=== PATIENT | female | born 1995 | race Caucasian/White ===

== ENCOUNTER 2018-12-10 17:58 | Emergency (ER) | payer MEDICAID ==
--- NOTE | 2018-12-10 19:07 | EDM.PDOC ---
ED HPI GENERAL MEDICAL PROBLEM - General Chief Complaint: ENT Problem Stated Complaint: PT HAS EAR INFECTION Time Seen by Provider: 12/10/18 18:51 Source of Information: Reports: Patient History Limitations: Reports: No Limitations - History of Present Illness INITIAL COMMENTS - FREE TEXT/NARRATIVE: HISTORY AND PHYSICAL: History of present illness: Patient is a 23-year-old female presents to the ED today with concern of left ear pain 2-3 days. Patient states she has had cold-like symptoms over the past week but her cold symptoms have resolved but she started getting left ear pain a few days ago. Patient states she's been taking Tylenol and ibuprofen with some relief of symptoms. Eyes any other symptoms or concerns at this time. Patient denies fever, chills, chest pain, shortness of breath, or cough. Denies headache, neck stiff ness, change in vision, syncope, or near syncope. Denies nausea, vomiting, abdominal pain, diarrhea, constipation, or dysuria. Has not noted any blood in urine or stool. Patient has been eating and drinking appropriately. Review of systems: As per history of present illness and below otherwise all systems reviewed and negative. Past medical history: As per history of present illness and as reviewed below otherwise noncontributory. Surgical history: As per history of present illness and as reviewed below otherwise noncontributory. Social history: See social history for further information Family history: As per history of present illness and as reviewed below otherwise noncontributory. Physical exam: General: Patient is alert, oriented, and in no acute distress. Patient sitting comfortably on exam table. HEENT: Atraumatic, normocephalic, pupils equal and reactive bilaterally, negative for conjunctival pallor or scleral icterus, mucous membranes moist, right TM is normal, left TM is erythematous and bulging, the left external auditory canal is also an erythematous and slightly edematous with small amount of granulation tissue debris in the canal, patient does have pain with movement of the left auricle and pain with palpation of the left tragus, no mastoid tenderness on the left, throat clear, neck supple, nontender, trachea midline. No drooling or trismus noted. No meningeal signs. No hot potato voice noted. Lungs: Clear to auscultation, breath sounds equal bilaterally, chest nontender. Heart: S1S2, regular rate and rhythm without overt murmur Abdomen: Soft, nondistended, nontender. Negative for masses or hepatosplenomegaly. Negative for costovertebral tenderness. Pelvis: Stable nontender. Genitourinary: Deferred. Rectal: Deferred. Skin: Intact, warm, dry. No lesions or rashes noted. Extremities: Atraumatic, negative for cords or calf pain. Neurovascular unremarkable. Neuro: Awake, alert, oriented. Cranial nerves II through XII unremarkable. Cerebellum unremarkable. Motor and sensory unremarkable throughout. Exam nonfocal. Notes: Discussed the importance for follow-up with a primary care provider. Voices understanding and is agreeable to plan of care. Denies any further questions or concerns at this time. Diagnostics: None Therapeutics: None Prescription: Amoxicillin, Cortisporin Otic Impression: Left acute otitis media Left acute otitis externa Plan: 1. Take medication as prescribed. Continue to alternate ibuprofen and Tylenol as directed for pain and discomfort. 2. Follow-up with your primary care provider or ENT specialist as discussed. Return to the ED as needed and as discussed. Definitive disposition and diagnosis as appropriate pending reevaluation and review of above. L ear Pain Score (Numeric/FACES): 10 - Related Data Allergies Allergy/AdvReac Type Severity Reaction Status Date / Time No Known Allergies Allergy Verified 12/10/18 18:57 Home Meds: Home Meds . [No Known Home Meds] 12/10/18 [History] Past Medical History - Past Health History Medical/Surgical History: Denies Medical/Surgical History Social & Family History - Tobacco Use Smoking Status *Q: Never Smoker - Caffeine Use Caffeine Use: Reports: Soda - Recreational Drug Use Recreational Drug Use: No ED ROS GENERAL - Review of Systems Review Of Systems: ROS reveals no pertinent complaints other than HPI. ED EXAM, GENERAL - Physical Exam Exam: See Below (See dictation) Course - Vital Signs Last Recorded V/S: Last Vital Signs Temp 97.4 F 12/10/18 18:55 Pulse 78 12/10/18 18:55 Resp 16 12/10/18 18:55 BP 138/75 12/10/18 18:55 Pulse Ox 99 12/10/18 18:55 Departure - Departure Time of Disposition: 19:06 Disposition: Home, Self-Care 01 Clinical Impression: Left otitis media Qualifiers: Otitis media type: suppurative Chronicity: acute Recurrence: not specified as recurrent Spontaneous tympanic membrane rupture: without spontaneous rupture Qualified Code(s): H66.002 - Acute suppurative otitis media without spontaneous rupture of ear drum, left ear Left otitis externa Qualifiers: Otitis externa type: unspecified type Chronicity: acute Qualified Code(s): H60.502 - Unspecified acute noninfective otitis externa, left ear - Discharge Information Instructions: Otitis Media, Adult, [id number], Otitis Externa, [id number] Referrals: PCP,None [Primary Care Provider] - Additional Instructions: The following information is given to patients seen in the emergency department who are being discharged to home. This information is to outline your options for follow-up care. We provide all patients seen in our emergency department with a follow-up referral. The need for follow-up, as well as the timing and circumstances, are variable depending upon the specifics of your emergency department visit. If you don't have a primary care physician on staff, we will provide you with a referral. We always advise you to contact your personal physician following an emergency department visit to inform them of the circumstance of the visit and for follow-up with them and/or the need for any referrals to a consulting specialist. The emergency department will also refer you to a specialist when appropriate. This referral assures that you have the opportunity for follow-up care with a specialist. All of these measure are taken in an effort to provide you with optimal care, which includes your follow-up. Under all circumstances we always encourage you to contact your private physician who remains a resource for coordinating your care. When calling for follow-up care, please make the office aware that this follow-up is from your recent emergency room visit. If for any reason you are refused follow-up, please contact the [facility] Emergency Department at and asked to speak to the emergency department charge nurse. [facility] [address] [place] [id number] [facility] [address] [place] [address] [facility] Ears, Nose, and Throat Specialist, Dr. Gagandeep Deleon [address] , [facility] [address] 1. Take medication as prescribed. Continue to alternate ibuprofen and Tylenol as directed for pain and discomfort. 2. Follow-up with your primary care provider or ENT specialist as discussed. Return to the ED as needed and as discussed.
== END 2018-12-10 19:24 | disposition home or self-care (01) ==
LOC: MW.ED 17:58
DX: H66.002 Acute suppurative otitis media without spontaneous rupture of ear drum, left ear (principal); H60.502 Unspecified acute noninfective otitis externa, left ear
CPT/HCPCS: 99282

== ENCOUNTER 2019-01-08 00:52 | Inpatient (IN) | payer MEDICAID ==
[2019-01-08] MEDS ORDERED: Terbutaline 1 MG/ML SDV SUBCUT PRN (00:55)
[2019-01-08] MEDS ORDERED: Misoprostol 200 MCG Tab PO PRN (00:55)
[2019-01-08] MEDS ORDERED: Water For Irrigation,Sterile 1,000 ML Container IRR PRN (00:55)
[2019-01-08] MEDS ORDERED: Lidocaine 1% 50 ML MDV INJECT PRN (00:55)
[2019-01-08] MEDS ORDERED: Misoprostol 25 MCG (1/4 of 100 MCG) Tab VAG PRN (00:55)
[2019-01-08] MEDS ORDERED: Sodium Chloride 0.9% 2.5 ML Syringe FLUSH PRN (00:55)
[2019-01-08] MEDS ORDERED: Sodium Chloride 0.9% 10 ML Syringe FLUSH PRN (00:55)
[2019-01-08] MEDS ORDERED: Tranexamic Acid 1,000 MG in Sodium Chloride 0.9% 100 ML IV PRN (00:55)
[2019-01-08] MEDS ORDERED: Sodium Chloride 0.9% 10 ML SDV IV PRN (00:55)
[2019-01-08] MEDS ORDERED: Ondansetron 4 MG/2 ML SDV IVPUSH PRN (00:55)
[2019-01-08] MEDS ORDERED: Carboprost Tromethamine 250 MCG/1 ML Amp IM PRN (00:55)
[2019-01-08] MEDS ORDERED: Nalbuphine 10 MG/1 ML Vial IVPUSH PRN (00:55)
[2019-01-08] MEDS ORDERED: Methylergonovine 0.2 MG/1 ML Amp IM PRN (00:55)
[2019-01-08] MEDS ORDERED: Oxytocin/0.9 % Sodium Chloride 30 UNIT/500 ML BAG IV SCH ×2 (01:00)
[2019-01-08] MEDS: Misoprostol 25 MCG (1/4 of 100 MCG) Tab VAG PRN ×3 (05:50→14:12)
[2019-01-08] MEDS: Butorphanol 1 MG/ML SDV IVPUSH PRN ×2 (15:25→20:27)
[2019-01-08] MEDS: Lactated Ringers 1,000 ML IV SCH ×3 (20:30→22:36)
[2019-01-08] MEDS ORDERED: fentaNYL 100 MCG/2 ML SDV ONE (21:02)
[2019-01-08] MEDS ORDERED: Ropivacaine HCl/PF 100 ML ONE (21:02)
--- NOTE | 2019-01-08 21:27 | PCM.PREANE ---
Preanesthetic Assessment - Anesthesia/Transfusion/Family Hx Anesthesia History: No Prior Anesthesia Family History of Anesthesia Reaction: No Transfusion History: No Prior Transfusion(s) - Review of Systems General: No Symptoms Pulmonary: No Symptoms Cardiovascular: No Symptoms Gastrointestinal: No Symptoms Neurological: No Symptoms - Physical Assessment NPO Status Date: 01/08/19 NPO Status Time: 14:00 Height: 1.6 m Weight: 97.523 kg ASA Class: 1 - Lab Values: Laboratory Last Values WBC 14.65 K/uL (4.0-11.0) H 01/08/19 01:31 RBC 4.39 M/uL (4.30-5.90) 01/08/19 01:31 Hgb 12.0 g/dL (12.0-16.0) 01/08/19 01:31 Hct 36.8 % (36.0-46.0) 01/08/19 01:31 MCV 83.8 fL (80.0-98.0) 01/08/19 01:31 MCH 27.3 pg (27.0-32.0) 01/08/19 01:31 MCHC 32.6 g/dL (31.0-37.0) 01/08/19 01:31 RDW Std Deviation 47.2 fl (28.0-62.0) 01/08/19 01:31 RDW Coeff of Adonis 16 % (11.0-15.0) H 01/08/19 01:31 Plt Count 186 K/uL (150-400) 01/08/19 01:31 MPV 12.10 fL (7.40-12.00) H 01/08/19 01:31 Nucleated RBC % 0.0 /100WBC 01/08/19 01:31 Nucleated RBCs # 0 K/uL 01/08/19 01:31 Blood Type A POSITIVE 01/08/19 01:31 Antibody Screen NEGATIVE 01/08/19 01:31 - Allergies Allergies/Adverse Reactions: Allergies Allergy/AdvReac Type Severity Reaction Status Date / Time No Known Allergies Allergy Verified 12/10/18 18:57 - Acknowledgements Anesthesia Type Planned: Epidural Pt an Appropriate Candidate for the Planned Anesthesia: Yes Alternatives and Risks of Anesthesia Discussed w Pt/Guardian: Yes Pt/Guardian Understands and Agrees with Anesthesia Plan: Yes PreAnesthesia Questionnaire - Past Health History Medical/Surgical History: Denies Medical/Surgical History Respiratory History: Reports: Asthma - Past Surgical History GI Surgical History: Reports: Appendectomy Other GI Surgeries/Procedures: 2006 - SUBSTANCE USE Smoking Status *Q: Never Smoker Tobacco Use Within Last Twelve Months: No Second Hand Smoke Exposure: No Recreational Drug Use History: No - HOME MEDS Home Medications: Home Meds . [No Known Home Meds] 12/10/18 [History] - CURRENT (IN HOUSE) MEDS Current Meds: Current Medications Butorphanol Tartrate (Stadol) 1 mg IVPUSH Q1H PRN PRN Reason: Pain Last Admin: 01/08/19 20:27 Dose: 1 mg Carboprost Tromethamine (Hemabate Ds) 250 mcg IM ASDIRECTED PRN PRN Reason: Post Hemorrhage Lactated Ringer's (Ringers, Lactated) 1,000 mls @ 150 mls/hr IV ASDIRECTED SANDI Last Admin: 01/08/19 21:25 Dose: 999 mls/hr Oxytocin/Sodium Chloride (Oxytocin 30 Unit/500 Ml-Ns) 30 unit in 500 mls @ 999 mls/hr IV TITRATE SANDI Oxytocin/Sodium Chloride (Oxytocin 30 Unit/500 Ml-Ns) 30 unit in 500 mls @ 2 mls/hr IV TITRATE SANDI; Protocol Last Titration: 01/08/19 20:00 Dose: 8 munits/min, 8 mls/hr Tranexamic Acid 1,000 mg/ (Sodium Chloride) 110 mls @ 660 mls/hr IV ONETIME PRN PRN Reason: Bleeding Lidocaine HCl (Xylocaine 1%) 50 ml INJECT ONETIME PRN PRN Reason: Laceration repair Methylergonovine Maleate (Methergine) 0.2 mg IM ASDIRECTED PRN PRN Reason: Post Hemorrhage Misoprostol (Cytotec) 200 mcg PO ONETIME PRN PRN Reason: Post Hemorrhage Misoprostol (Cytotec) 25 mcg VAG ONETIME PRN PRN Reason: Cervical Ripening Last Admin: 01/08/19 01:40 Dose: 25 mcg Misoprostol (Cytotec) 25 mcg VAG Q4H PRN PRN Reason: Cervical Ripening Last Admin: 01/08/19 14:12 Dose: 25 mcg Nalbuphine HCl (Nubain) 10 mg IVPUSH Q1H PRN PRN Reason: Pain (severe 7-10) Ondansetron HCl (Zofran) 4 mg IVPUSH Q6H PRN PRN Reason: Nausea/Vomiting Sodium Chloride (Saline Flush) 10 ml FLUSH ASDIRECTED PRN PRN Reason: Keep Vein Open Last Admin: 01/08/19 01:30 Dose: 10 ml Sodium Chloride (Saline Flush) 2.5 ml FLUSH ASDIRECTED PRN PRN Reason: Keep Vein Open Sodium Chloride (Normal Saline) 10 ml IV ASDIRECTED PRN PRN Reason: IV Use Sterile Water (Sterile Water For Irrigation) 1,000 ml IRR ASDIRECTED PRN PRN Reason: delivery Terbutaline Sulfate (Brethine) 0.25 mg SUBCUT ASDIRECTED PRN PRN Reason: Tacysystole Discontinued Medications Fentanyl (Sublimaze) Confirm Administered Dose 100 mcg .ROUTE .STK-MED ONE Stop: 01/08/19 21:03 Ropivacaine (Naropin 0.2%) Confirm Administered Dose 100 mls @ as directed .ROUTE .STK-MED ONE Stop: 01/08/19 21:03
--- NOTE | 2019-01-08 21:31 | PCM.PRNOTE ---
- Free Text/Narrative Note: Anes Note Patient requests epidural for L&D. Sitting position. Level L3-L4, midline approach. Chloraprep scrub to lumbar area. Sterile fenstrated drape applied. Epidural space easily achieved single attempt with ease using ISRAEL technique. ISRAEL at 5 cm. Epidural cath threaded 5 cm with ease. Epidural cath secured at skin at 10 cm using sterile clear adhesive dressing. 2119 Ruma 3 cc 1.5% lido with epi negative. 2122 Load 10 cc 0.2% ropiv with 1 mcg/cc fentanyl in sloww divided doses. 2136 Pump started same solution at 8 cc hr with 6 cc q 20 min prn bolus. Jesse well. Time with patient Hair Granados [employer]
[2019-01-09] MEDS: Lactated Ringers 1,000 ML IV SCH ×2 (00:51→09:25)
[2019-01-09] MEDS ORDERED: fentaNYL 100 MCG/2 ML SDV ONE (07:07)
[2019-01-09] MEDS ORDERED: Ropivacaine HCl/PF 100 ML ONE (07:07)
--- NOTE | 2019-01-09 07:17 | PCM.PRNOTE ---
- Free Text/Narrative Note: Anes Note Epidural infusion completed. A new 100 cc bag of 0.2% ropivicaine with 1 mcg/cc fentanyl was placed. An infusion of 8 cc hr with 6 cc q 20 min prn bolus was started. Patient reports excellent analgesia. Time with patient [id number]
[2019-01-09] MEDS ORDERED: ceFAZolin 2 GM in Premix Bag 1 BAG IV ONE (09:25)
[2019-01-09] MEDS ORDERED: Citric Acid/Sodium Citrate Solution 30 ML Cup PO ONE (09:26)
[2019-01-09] MEDS ORDERED: Bupivacaine 0.5% 30 ML SDV ONE (09:28)
[2019-01-09] MEDS ORDERED: Propofol 200 MG/20 ML SDV ONE (09:33)
[2019-01-09] MEDS ORDERED: ePHEDrine 50 MG/ML SDV ONE (09:34)
[2019-01-09] MEDS ORDERED: Phenylephrine/Normal Saline 100 MCG/ML 10 ML Syringe ONE (09:34)
[2019-01-09] MEDS ORDERED: Ondansetron 4 MG/2 ML SDV ONE (09:34)
[2019-01-09] MEDS ORDERED: Sodium Chloride 0.9% 40 ML ONE (09:34)
[2019-01-09] MEDS ORDERED: ceFAZolin 1 GM Vial ONE (09:34)
[2019-01-09] MEDS ORDERED: Morphine PF 10 MG/10 ML SDV ONE (09:57)
[2019-01-09] MEDS ORDERED: Acetaminophen/oxyCODONE 325-5 MG Tab PO PRN ×2 (11:15→11:19)
[2019-01-09] MEDS ORDERED: Ondansetron 4 MG/2 ML SDV IVPUSH PRN ×2 (11:15→11:19)
[2019-01-09] MEDS ORDERED: Lanolin 100% Cream 7 GM Tube TOP PRN (11:15)
[2019-01-09] MEDS ORDERED: diphenhydrAMINE 50 MG/ML SDV IVPUSH PRN ×2 (11:15→11:19)
[2019-01-09] MEDS ORDERED: Lactated Ringers 1,000 ML IV SCH (11:15)
[2019-01-09] MEDS ORDERED: Bisacodyl 10 MG Supp RECTAL PRN (11:15)
[2019-01-09] MEDS ORDERED: Naloxone 0.4 MG/ML Syringe IVPUSH PRN (11:19)
[2019-01-09] MEDS ORDERED: Nalbuphine 10 MG/1 ML Vial IVPUSH PRN (11:19)
[2019-01-09] MEDS ORDERED: fentaNYL 100 MCG/2 ML SDV IVPUSH PRN (11:19)
--- NOTE | 2019-01-09 11:22 | PCM.OPNOTE ---
- General Post-Op/Procedure Note Date of Surgery/Procedure: 01/09/19 Operative Procedure(s): Primary Lower Transverse Cesearean section Findings: Live female delivered at 1015am , 8/8 , weight 3430g Pre Op Diagnosis: 23 yo @ 40w6d with arrest of descent Post-Op Diagnosis: none Anesthesia Technique: Epidural Primary Surgeon: Aristeo Bernardo Nurse Manager: Nikki Rose Fluid Replacement, Intraop: 1,900 Output, Urine Amount: 450 EBL in mLs: 1,000 Complications: None Condition: Good Free Text/Narrative:: Intake & Output 01/08/19 01/09/19 01/09/19 22:59 06:59 14:59 Intake Total 1200 Output Total 100 Balance 1100
[2019-01-09] MEDS: Ketorolac 30 MG/ML SDV IVPUSH SCH ×3 (11:33→23:39)
--- NOTE | 2019-01-09 11:48 | PCM.SN ---
- Free Text/Narrative Note: Called for . Pre-op reviewed, discussed with patient, ? answered. Will proceed using current epidural.
--- NOTE | 2019-01-09 11:50 | PCM.POSTAN ---
POST ANESTHESIA ASSESSMENT - MENTAL STATUS Mental Status: Alert - VITAL SIGNS Vital Signs: Last Vital Signs Temp 35.5 C 01/09/19 11:14 Pulse 68 01/09/19 11:34 Resp 11 L 01/09/19 11:34 BP 126/74 01/09/19 11:34 Pulse Ox 99 01/09/19 11:34 - RESPIRATORY Respiratory Status: Respiratory Rate WNL - CARDIOVASCULAR CV Status: Pulse Rate WNL - GASTROINTESTINAL GI Status: No Symptoms - PAIN Pain Score: 0 (Epidural block still in-place.) - POST OP HYDRATION Hydration Status: Adequate & Stable - OBSERVATIONS Free Text/Narrative:: Doing well. VSS. 0 for pain. No nausea. Adequate for transfer out of Phase 1.
[2019-01-09] MEDS: Docusate Sodium 100 MG Cap PO SCH (20:57)
[2019-01-10] MEDS: Ketorolac 30 MG/ML SDV IVPUSH SCH ×2 (05:26→12:02)
--- NOTE | 2019-01-10 07:13 | PCM48HPAN ---
Post Anesthesia Note - EVALUATION WITHIN 48HRS OF ANESTHETIC Vital Signs in Normal Range: Yes Patient Participated in Evaluation: Yes Respiratory Function Stable: Yes Airway Patent: Yes Cardiovascular Function Stable: Yes Hydration Status Stable: Yes Pain Control Satisfactory: Yes (No pain at present) Nausea and Vomiting Control Satisfactory: Yes Mental Status Recovered: Yes Vital Signs: Last Vital Signs Temp 36.3 C 01/10/19 04:00 Pulse 92 01/10/19 07:00 Resp 15 01/10/19 06:00 BP 109/59 L 01/10/19 04:00 Pulse Ox 95 01/10/19 07:00 - COMMENTS/OBSERVATIONS Free Text/Narrative:: Doing well. No post op problems noted.
--- NOTE | 2019-01-10 07:42 | PCM.PNPP ---
<MiltonNikki E - Last Filed: 01/10/19 07:37> - General Info Date of Service: 01/10/19 Admission Dx/Problem (Free Text): at 40+5 for arrest of descent Subjective Update: Jackie states she is doing OK this morning. She was sleeping this AM when I rounded and states she was able to get some last night. Her pain is a 4/5 with Toradol on board and her abdomen is feeling sore. Functional Status: Reports: Pain Controlled, Tolerating Diet, Ambulating, Incentive Spirometry. Denies: Urinating (catheter removed this AM--has not urinated on her own yet) Pain Score: 5 - Review of Systems General: Reports: Fatigue. Denies: Fever, Weakness, Chills HEENT: Denies: Headaches, Visual Changes Pulmonary: Denies: Shortness of Breath Cardiovascular: Denies: Chest Pain Gastrointestinal: Reports: Other (abdominal soreness appropriate for post- section; no BM yet ). Denies: Flatus Neurological: Denies: Confusion, Dizziness, Headache Psychiatric: Denies: Confusion - General Info Date of Service: 01/10/19 - Patient Data Vital Signs - Most Recent: Last Vital Signs Temp 36.3 C 01/10/19 04:00 Pulse 92 01/10/19 07:00 Resp 15 01/10/19 06:00 BP 109/59 L 01/10/19 04:00 Pulse Ox 95 01/10/19 07:00 Weight - Most Recent: 97.523 kg I&O - Last 24 Hours: Intake & Output 01/09/19 01/10/19 01/10/19 22:59 06:59 14:59 Intake Total 420 1500 Output Total 250 820 Balance 170 680 Lab Results - Last 24 Hours: Laboratory Results - last 24 hr 01/08/19 01/10/19 Range/Units 01:31 05:44 Hgb 7.8 L (12.0-16.0) g/dL Hct 24.6 L (36.0-46.0) % RPR Non Reactive (NonRea<1:1) Med Orders - Current: Current Medications Bisacodyl (Dulcolax) 10 mg RECTAL ONETIME PRN PRN Reason: Constipation Butorphanol Tartrate (Stadol) 1 mg IVPUSH Q1H PRN PRN Reason: Pain Last Admin: 01/08/19 20:27 Dose: 1 mg Carboprost Tromethamine (Hemabate Ds) 250 mcg IM ASDIRECTED PRN PRN Reason: Post Hemorrhage Diphenhydramine HCl (Benadryl) 25 mg IVPUSH Q6H PRN PRN Reason: Itching or Nausea Diphenhydramine HCl (Benadryl) 25 mg IVPUSH Q4H PRN PRN Reason: Itching Stop: 01/10/19 11:19 Docusate Sodium (Colace) 100 mg PO BID [facility] Last Admin: 01/09/19 20:57 Dose: 100 mg Emollient Ointment (Lansinoh Hpa) 0 gm TOP ASDIRECTED PRN PRN Reason: Sore Nipples Fentanyl (Sublimaze) 50 mcg IVPUSH Q1H PRN PRN Reason: Pain (severe 7-10) Lactated Ringer's (Ringers, Lactated) 1,000 mls @ 150 mls/hr IV ASDIRECTED [facility] Last Admin: 01/09/19 09:25 Dose: 999 mls/hr Oxytocin/Sodium Chloride (Oxytocin 30 Unit/500 Ml-Ns) 30 unit in 500 mls @ 999 mls/hr IV TITRATE [facility] Oxytocin/Sodium Chloride (Oxytocin 30 Unit/500 Ml-Ns) 30 unit in 500 mls @ 2 mls/hr IV TITRATE [facility]; Protocol Last Titration: 01/09/19 09:13 Dose: 20 munits/min, 20 mls/hr Tranexamic Acid 1,000 mg/ (Sodium Chloride) 110 mls @ 660 mls/hr IV ONETIME PRN PRN Reason: Bleeding Lactated Ringer's (Ringers, Lactated) 1,000 mls @ 125 mls/hr IV ASDIRECTED [facility] Last Admin: 01/09/19 12:50 Dose: 125 mls/hr Ibuprofen (Motrin) 800 mg PO Q8H PRN PRN Reason: mild pain or fever Ketorolac Tromethamine (Toradol) 30 mg IVPUSH Q6H [facility] Stop: 01/10/19 11:16 Last Admin: 01/10/19 05:26 Dose: 30 mg Lidocaine HCl (Xylocaine 1%) 50 ml INJECT ONETIME PRN PRN Reason: Laceration repair Methylergonovine Maleate (Methergine) 0.2 mg IM ASDIRECTED PRN PRN Reason: Post Hemorrhage Misoprostol (Cytotec) 200 mcg PO ONETIME PRN PRN Reason: Post Hemorrhage Misoprostol (Cytotec) 25 mcg VAG ONETIME PRN PRN Reason: Cervical Ripening Last Admin: 01/08/19 01:40 Dose: 25 mcg Misoprostol (Cytotec) 25 mcg VAG Q4H PRN PRN Reason: Cervical Ripening Last Admin: 01/08/19 14:12 Dose: 25 mcg Nalbuphine HCl (Nubain) 10 mg IVPUSH Q1H PRN PRN Reason: Pain (severe 7-10) Nalbuphine HCl (Nubain) 5 mg IVPUSH ASDIRECTED PRN PRN Reason: Itching Naloxone HCl (Narcan) 0.1 mg IVPUSH ONETIME PRN PRN Reason: Respiratory Depression Stop: 01/10/19 11:19 Ondansetron HCl (Zofran) 4 mg IVPUSH Q6H PRN PRN Reason: Nausea/Vomiting Last Admin: 01/08/19 22:09 Dose: 4 mg Ondansetron HCl (Zofran) 4 mg IVPUSH Q4H PRN PRN Reason: Nausea/Vomiting Ondansetron HCl (Zofran) 4 mg IVPUSH Q6H PRN PRN Reason: Nausea Oxycodone/Acetaminophen (Percocet 325-5 Mg) 1 tab PO Q4H PRN PRN Reason: Pain (moderate 4-6) Oxycodone/Acetaminophen (Percocet 325-5 Mg) 2 tab PO Q4H PRN PRN Reason: Pain (moderate 4-6) Oxycodone/Acetaminophen (Percocet 325-5 Mg) 2 tab PO Q6H PRN PRN Reason: Pain (moderate 4-6) Sodium Chloride (Saline Flush) 10 ml FLUSH ASDIRECTED PRN PRN Reason: Keep Vein Open Last Admin: 01/08/19 01:30 Dose: 10 ml Sodium Chloride (Saline Flush) 2.5 ml FLUSH ASDIRECTED PRN PRN Reason: Keep Vein Open Sodium Chloride (Normal Saline) 10 ml IV ASDIRECTED PRN PRN Reason: IV Use Sterile Water (Sterile Water For Irrigation) 1,000 ml IRR ASDIRECTED PRN PRN Reason: delivery Terbutaline Sulfate (Brethine) 0.25 mg SUBCUT ASDIRECTED PRN PRN Reason: Tacysystole Discontinued Medications Bupivacaine HCl (Marcaine 0.5%) Confirm Administered Dose 30 ml .ROUTE .STK-MED ONE Stop: 01/09/19 09:29 Last Admin: 01/09/19 22:47 Dose: Not Given Cefazolin Sodium (Ancef) Confirm Administered Dose 2 gm .ROUTE .STK-MED ONE Stop: 01/09/19 09:35 Citric Acid/Sodium Citrate (Bicitra Solution) 30 ml PO ONETIME ONE Stop: 01/09/19 09:27 Last Admin: 01/09/19 09:45 Dose: 30 ml Ephedrine Sulfate (Ephedrine Sulfate) Confirm Administered Dose 100 mg .ROUTE .STK-MED ONE Stop: 01/09/19 09:35 Fentanyl (Sublimaze) Confirm Administered Dose 100 mcg .ROUTE .STK-MED ONE Stop: 01/08/19 21:03 Last Admin: 01/09/19 22:46 Dose: Not Given Fentanyl (Sublimaze) Confirm Administered Dose 100 mcg .ROUTE .STK-MED ONE Stop: 01/09/19 07:08 Last Admin: 01/09/19 22:46 Dose: Not Given Ropivacaine (Naropin 0.2%) Confirm Administered Dose 100 mls @ as directed .ROUTE .STK-MED ONE Stop: 01/08/19 21:03 Last Admin: 01/09/19 22:46 Dose: Not Given Ropivacaine (Naropin 0.2%) Confirm Administered Dose 100 mls @ as directed .ROUTE .ST-MED ONE Stop: 01/09/19 07:08 Last Admin: 01/09/19 22:46 Dose: Not Given Cefazolin Sodium/Dextrose 2 gm (/ Premix) 50 mls @ 100 mls/hr IV ONETIME ONE Stop: 01/09/19 09:54 Last Admin: 01/09/19 22:47 Dose: Not Given Sodium Chloride (Normal Saline) Confirm Administered Dose 40 mls @ as directed .ROUTE .STK-MED ONE Stop: 01/09/19 09:35 Acetaminophen (Ofirmev) Confirm Administered Dose 100 mls @ as directed IV .STK- MED ONE Stop: 01/09/19 09:50 Last Admin: 01/09/19 22:47 Dose: Not Given Morphine Sulfate (Duramorph Pf) Confirm Administered Dose 10 mg .ROUTE .STK-MED ONE Stop: 01/09/19 09:58 Ondansetron HCl (Zofran) Confirm Administered Dose 4 mg .ROUTE .STK-MED ONE Stop: 01/09/19 09:35 Phenylephrine HCl (Phenylephrine In Ns 100 Mcg/Ml) Confirm Administered Dose 1 mg .ROUTE .STK-MED ONE Stop: 01/09/19 09:35 Propofol (Diprivan 20 Ml) Confirm Administered Dose 200 mg .ROUTE .STK-MED ONE Stop: 01/09/19 09:34 Succinylcholine Chloride (Succinylcholine Chloride) Confirm Administered Dose 200 mg .ROUTE .STK-MED ONE Stop: 01/09/19 09:35 - Infant Interaction Disposition, : [facility] to Nursery Infant Interaction: To Nursery to Visit Infant Feeding: Other (see below) (pt will breastfeed baby when hand slitter gives the go-ahead) Support Person: Significant Other - Recovery Exam Fundal Tone: Firm Fundal Level: At Umbilicus Fundal Placement: Midline Lochia Amount: Small Lochia Color: Rubra/Red Perineum Description: Intact, Minimal Bruising/Swelling Episiotomy/Laceration: None Other Urinary Elimination, : urinary catheter removed this AM--no trial of voiding yet - Exam General: Alert, Cooperative, No Acute Distress Lungs: Clear to Auscultation, Normal Respiratory Effort Cardiovascular: Regular Rate, Regular Rhythm GI/Abdominal Exam: Soft (appropriate tenderness to palpation) Skin: Warm, Dry, Intact Wound/Incisions: Healing Well Neurological: No New Focal Deficit Psy/Mental Status: Alert, Normal Affect, Normal Mood - Problem List & Annotations (1) delivery, delivered, current hospitalization SNOMED Code(s): 227792371 Code(s): O82 - ENCOUNTER FOR DELIVERY WITHOUT INDICATION Status: Resolved Current Visit: Yes - Problem List Review Problem List Initiated/Reviewed/Updated: Yes - Assessment Assessment:: Jackie Kulkarni is a G1 now P1 PPD #1 s/p for arrest of descent. Pt was induced for post-dates. PNC uncomplicated. PMHx notable for mild-intermittent asthma. Patient is currently doing well. She is hemodynamically stable. Lochia is currently appropriate. Pain adequately controlled. Will begin breast-feeding at hand slitter's discretion. - Plan Plan:: Continue routine post- cares to including monitoring of vital signs and lochia. Treat pain PRN with Toradol and Oxycontin as ordered. Encourage hydration, mother- bonding, ambulation, and incentive spirometry. Pt will stay another day for monitoring and cares. <Aristeo Bernardo - Last Filed: 01/10/19 15:53> - Patient Data Vital Signs - Most Recent: Last Vital Signs Temp 36.6 C 01/10/19 12:00 Pulse 87 01/10/19 12:00 Resp 17 01/10/19 12:00 BP 118/62 01/10/19 12:00 Pulse Ox 98 01/10/19 12:00 I&O - Last 24 Hours: Intake & Output 01/10/19 01/10/19 01/10/19 06:59 14:59 22:59 Intake Total 1500 Output Total 820 700 Balance 680 -700 Lab Results - Last 24 Hours: Laboratory Results - last 24 hr 01/08/19 01/10/19 Range/Units 01:31 05:44 Hgb 7.8 L (12.0-16.0) g/dL Hct 24.6 L (36.0-46.0) % RPR Non Reactive (NonRea<1:1) Med Orders - Current: Current Medications Bisacodyl (Dulcolax) 10 mg RECTAL ONETIME PRN PRN Reason: Constipation Butorphanol Tartrate (Stadol) 1 mg IVPUSH Q1H PRN PRN Reason: Pain Last Admin: 01/08/19 20:27 Dose: 1 mg Carboprost Tromethamine (Hemabate Ds) 250 mcg IM ASDIRECTED PRN PRN Reason: Post Hemorrhage Diphenhydramine HCl (Benadryl) 25 mg IVPUSH Q6H PRN PRN Reason: Itching or Nausea Docusate Sodium (Colace) 100 mg PO BID [facility] Last Admin: 01/10/19 09:20 Dose: 100 mg Emollient Ointment (Lansinoh Hpa) 0 gm TOP ASDIRECTED PRN PRN Reason: Sore Nipples Fentanyl (Sublimaze) 50 mcg IVPUSH Q1H PRN PRN Reason: Pain (severe 7-10) Lactated Ringer's (Ringers, Lactated) 1,000 mls @ 150 mls/hr IV ASDIRECTED [facility] Last Admin: 01/09/19 09:25 Dose: 999 mls/hr Oxytocin/Sodium Chloride (Oxytocin 30 Unit/500 Ml-Ns) 30 unit in 500 mls @ 999 mls/hr IV TITRATE [facility] Oxytocin/Sodium Chloride (Oxytocin 30 Unit/500 Ml-Ns) 30 unit in 500 mls @ 2 mls/hr IV TITRATE [facility]; Protocol Last Titration: 01/09/19 09:13 Dose: 20 munits/min, 20 mls/hr Tranexamic Acid 1,000 mg/ (Sodium Chloride) 110 mls @ 660 mls/hr IV ONETIME PRN PRN Reason: Bleeding Lactated Ringer's (Ringers, Lactated) 1,000 mls @ 125 mls/hr IV ASDIRECTED [facility] Last Admin: 01/09/19 12:50 Dose: 125 mls/hr Ibuprofen (Motrin) 800 mg PO Q8H PRN PRN Reason: mild pain or fever Lidocaine HCl (Xylocaine 1%) 50 ml INJECT ONETIME PRN PRN Reason: Laceration repair Methylergonovine Maleate (Methergine) 0.2 mg IM ASDIRECTED PRN PRN Reason: Post Hemorrhage Misoprostol (Cytotec) 200 mcg PO ONETIME PRN PRN Reason: Post Hemorrhage Misoprostol (Cytotec) 25 mcg VAG ONETIME PRN PRN Reason: Cervical Ripening Last Admin: 01/08/19 01:40 Dose: 25 mcg Misoprostol (Cytotec) 25 mcg VAG Q4H PRN PRN Reason: Cervical Ripening Last Admin: 01/08/19 14:12 Dose: 25 mcg Nalbuphine HCl (Nubain) 10 mg IVPUSH Q1H PRN PRN Reason: Pain (severe 7-10) Nalbuphine HCl (Nubain) 5 mg IVPUSH ASDIRECTED PRN PRN Reason: Itching Ondansetron HCl (Zofran) 4 mg IVPUSH Q6H PRN PRN Reason: Nausea/Vomiting Last Admin: 01/08/19 22:09 Dose: 4 mg Ondansetron HCl (Zofran) 4 mg IVPUSH Q4H PRN PRN Reason: Nausea/Vomiting Ondansetron HCl (Zofran) 4 mg IVPUSH Q6H PRN PRN Reason: Nausea Oxycodone/Acetaminophen (Percocet 325-5 Mg) 1 tab PO Q4H PRN PRN Reason: Pain (moderate 4-6) Oxycodone/Acetaminophen (Percocet 325-5 Mg) 2 tab PO Q4H PRN PRN Reason: Pain (moderate 4-6) Last Admin: 01/10/19 15:38 Dose: 2 tab Oxycodone/Acetaminophen (Percocet 325-5 Mg) 2 tab PO Q6H PRN PRN Reason: Pain (moderate 4-6) Sodium Chloride (Saline Flush) 10 ml FLUSH ASDIRECTED PRN PRN Reason: Keep Vein Open Last Admin: 01/08/19 01:30 Dose: 10 ml Sodium Chloride (Saline Flush) 2.5 ml FLUSH ASDIRECTED PRN PRN Reason: Keep Vein Open Sodium Chloride (Normal Saline) 10 ml IV ASDIRECTED PRN PRN Reason: IV Use Sterile Water (Sterile Water For Irrigation) 1,000 ml IRR ASDIRECTED PRN PRN Reason: delivery Terbutaline Sulfate (Brethine) 0.25 mg SUBCUT ASDIRECTED PRN PRN Reason: Tacysystole Discontinued Medications Bupivacaine HCl (Marcaine 0.5%) Confirm Administered Dose 30 ml .ROUTE .STK-MED ONE Stop: 01/09/19 09:29 Last Admin: 01/09/19 22:47 Dose: Not Given Cefazolin Sodium (Ancef) Confirm Administered Dose 2 gm .ROUTE .STK-MED ONE Stop: 01/09/19 09:35 Citric Acid/Sodium Citrate (Bicitra Solution) 30 ml PO ONETIME ONE Stop: 01/09/19 09:27 Last Admin: 01/09/19 09:45 Dose: 30 ml Diphenhydramine HCl (Benadryl) 25 mg IVPUSH Q4H PRN PRN Reason: Itching Stop: 01/10/19 11:19 Ephedrine Sulfate (Ephedrine Sulfate) Confirm Administered Dose 100 mg .ROUTE .STK-MED ONE Stop: 01/09/19 09:35 Fentanyl (Sublimaze) Confirm Administered Dose 100 mcg .ROUTE .STK-MED ONE Stop: 01/08/19 21:03 Last Admin: 01/09/19 22:46 Dose: Not Given Fentanyl (Sublimaze) Confirm Administered Dose 100 mcg .ROUTE .STK-MED ONE Stop: 01/09/19 07:08 Last Admin: 01/09/19 22:46 Dose: Not Given Ropivacaine (Naropin 0.2%) Confirm Administered Dose 100 mls @ as directed .ROUTE .STK-MED ONE Stop: 01/08/19 21:03 Last Admin: 01/09/19 22:46 Dose: Not Given Ropivacaine (Naropin 0.2%) Confirm Administered Dose 100 mls @ as directed .ROUTE .STK-MED ONE Stop: 01/09/19 07:08 Last Admin: 01/09/19 22:46 Dose: Not Given Cefazolin Sodium/Dextrose 2 gm (/ Premix) 50 mls @ 100 mls/hr IV ONETIME ONE Stop: 01/09/19 09:54 Last Admin: 01/09/19 22:47 Dose: Not Given Sodium Chloride (Normal Saline) Confirm Administered Dose 40 mls @ as directed .ROUTE .STK-MED ONE Stop: 01/09/19 09:35 Acetaminophen (Ofirmev) Confirm Administered Dose 100 mls @ as directed IV .STK- MED ONE Stop: 01/09/19 09:50 Last Admin: 01/09/19 22:47 Dose: Not Given Ketorolac Tromethamine (Toradol) 30 mg IVPUSH Q6H [facility] Stop: 01/10/19 11:16 Last Admin: 01/10/19 12:02 Dose: 30 mg Morphine Sulfate (Duramorph Pf) Confirm Administered Dose 10 mg .ROUTE .STK-MED ONE Stop: 01/09/19 09:58 Naloxone HCl (Narcan) 0.1 mg IVPUSH ONETIME PRN PRN Reason: Respiratory Depression Stop: 01/10/19 11:19 Ondansetron HCl (Zofran) Confirm Administered Dose 4 mg .ROUTE .STK-MED ONE Stop: 01/09/19 09:35 Phenylephrine HCl (Phenylephrine In Ns 100 Mcg/Ml) Confirm Administered Dose 1 mg .ROUTE .STK-MED ONE Stop: 01/09/19 09:35 Propofol (Diprivan 20 Ml) Confirm Administered Dose 200 mg .ROUTE .STK-MED ONE Stop: 01/09/19 09:34 Succinylcholine Chloride (Succinylcholine Chloride) Confirm Administered Dose 200 mg .ROUTE .[employer]-MED ONE Stop: 01/09/19 09:35 - Problem List & Annotations (1) delivery, delivered, current hospitalization SNOMED Code(s): 707818256 Code(s): O82 - ENCOUNTER FOR DELIVERY WITHOUT INDICATION Status: Resolved Current Visit: Yes - Problem List Review Problem List Initiated/Reviewed/Updated: Yes - My Orders Last 24 Hours: My Active Orders 01/09/19 21:00 Docusate Sodium [Colace] 100 mg PO BID - Assessment Assessment:: P1 s/p primary for arrest of descent . Good pain control , normal lochia , shields out Anemia - Plan Plan:: care Pain control as needed Will follow void Recommend Iron infusion , patient will prefer oral iron , she is hemodynamically stable, I will repeat h/h tomorrow
[2019-01-10] MEDS: Docusate Sodium 100 MG Cap PO SCH ×2 (09:20→20:33)
[2019-01-10] MEDS: Acetaminophen/oxyCODONE 325-5 MG Tab PO PRN ×2 (15:38→20:33)
[2019-01-10] MEDS: Iron Polysaccharides Complex 150 MG Cap PO SCH (16:18)
[2019-01-11] MEDS: Acetaminophen/oxyCODONE 325-5 MG Tab PO PRN ×4 (01:31→20:34)
[2019-01-11] MEDS: Ibuprofen 800 MG Tab PO PRN ×3 (04:37→20:34)
--- NOTE | 2019-01-11 08:33 | PCM.PNPP ---
<Nikki Rose E - Last Filed: 01/11/19 08:41> - General Info Date of Service: 01/11/19 Admission Dx/Problem (Free Text): at 40+5 for arrest of descent Subjective Update: Jackie states she is doing better this morning. She was able to get a little bit of sleep last night. Her pain is a 3/5 with Percocet and Motrin on board and her abdomen is still feeling quite sore. Functional Status: Reports: Pain Controlled, Tolerating Diet, Ambulating, Urinating, Incentive Spirometry Pain Score: 3 - Review of Systems General: Reports: Fatigue. Denies: Fever, Chills HEENT: Denies: Headaches, Visual Changes Pulmonary: Denies: Shortness of Breath Cardiovascular: Denies: Chest Pain Gastrointestinal: Reports: Abdominal Pain (appropriate post- section), Flatus, Other (no BM ) Genitourinary: Denies: Dysuria Neurological: Denies: Confusion, Dizziness - General Info Date of Service: 01/11/19 - Patient Data Vital Signs - Most Recent: Last Vital Signs Temp 36.8 C 01/11/19 04:14 Pulse 108 H 01/10/19 21:38 Resp 18 01/11/19 04:14 BP 109/69 01/11/19 04:14 Pulse Ox 97 01/11/19 04:14 Weight - Most Recent: 97.523 kg I&O - Last 24 Hours: Intake & Output 01/10/19 01/11/19 01/11/19 22:59 06:59 14:59 Intake Total 0 686 Balance 0 686 Lab Results - Last 24 Hours: Laboratory Results - last 24 hr 01/08/19 01/08/19 01/11/19 Range/Units 01:31 01:31 06:25 WBC 16.46 H (4.0-11.0) K/uL RBC 3.41 L (4.30-5.90) M/uL Hgb 9.6 L (12.0-16.0) g/dL Hct 29.3 L (36.0-46.0) % MCV 85.9 (80.0-98.0) fL MCH 28.2 (27.0-32.0) pg MCHC 32.8 (31.0-37.0) g/dL RDW Std Deviation 50.6 (28.0-62.0) fl RDW Coeff of Adonis 16 H (11.0-15.0) % Plt Count 174 (150-400) K/uL MPV 11.80 (7.40-12.00) fL Neut % (Auto) 79.9 (48.0-80.0) % Lymph % (Auto) 12.6 L (16.0-40.0) % Adams % (Auto) 7.2 (0.0-15.0) % Eos % (Auto) 0.2 (0.0-7.0) % Baso % (Auto) 0.1 (0.0-1.5) % Neut # (Auto) 13.1 H (1.4-5.7) K/uL Lymph # (Auto) 2.1 (0.6-2.4) K/uL Adams # (Auto) 1.2 H (0.0-0.8) K/uL Eos # (Auto) 0.0 (0.0-0.7) K/uL Baso # (Auto) 0.0 (0.0-0.1) K/uL Nucleated RBC % 0.0 /100WBC Nucleated RBCs # 0 K/uL RPR Non Reactive (NonRea<1:1) Blood Type A POSITIVE Antibody Screen NEGATIVE Crossmatch See Detail Med Orders - Current: Current Medications Bisacodyl (Dulcolax) 10 mg RECTAL ONETIME PRN PRN Reason: Constipation Butorphanol Tartrate (Stadol) 1 mg IVPUSH Q1H PRN PRN Reason: Pain Last Admin: 01/08/19 20:27 Dose: 1 mg Carboprost Tromethamine (Hemabate Ds) 250 mcg IM ASDIRECTED PRN PRN Reason: Post Hemorrhage Diphenhydramine HCl (Benadryl) 25 mg IVPUSH Q6H PRN PRN Reason: Itching or Nausea Docusate Sodium (Colace) 100 mg PO BID SANDI Last Admin: 01/10/19 20:33 Dose: 100 mg Emollient Ointment (Lansinoh Hpa) 0 gm TOP ASDIRECTED PRN PRN Reason: Sore Nipples Fentanyl (Sublimaze) 50 mcg IVPUSH Q1H PRN PRN Reason: Pain (severe 7-10) Lactated Ringer's (Ringers, Lactated) 1,000 mls @ 150 mls/hr IV ASDIRECTED SANDI Last Admin: 01/09/19 09:25 Dose: 999 mls/hr Oxytocin/Sodium Chloride (Oxytocin 30 Unit/500 Ml-Ns) 30 unit in 500 mls @ 999 mls/hr IV TITRATE SANDI Oxytocin/Sodium Chloride (Oxytocin 30 Unit/500 Ml-Ns) 30 unit in 500 mls @ 2 mls/hr IV TITRATE SANDI; Protocol Last Titration: 01/09/19 09:13 Dose: 20 munits/min, 20 mls/hr Tranexamic Acid 1,000 mg/ (Sodium Chloride) 110 mls @ 660 mls/hr IV ONETIME PRN PRN Reason: Bleeding Lactated Ringer's (Ringers, Lactated) 1,000 mls @ 125 mls/hr IV ASDIRECTED SANDI Last Admin: 01/09/19 12:50 Dose: 125 mls/hr Ibuprofen (Motrin) 800 mg PO Q8H PRN PRN Reason: mild pain or fever Last Admin: 01/11/19 04:37 Dose: 800 mg Lidocaine HCl (Xylocaine 1%) 50 ml INJECT ONETIME PRN PRN Reason: Laceration repair Methylergonovine Maleate (Methergine) 0.2 mg IM ASDIRECTED PRN PRN Reason: Post Hemorrhage Misoprostol (Cytotec) 200 mcg PO ONETIME PRN PRN Reason: Post Hemorrhage Misoprostol (Cytotec) 25 mcg VAG ONETIME PRN PRN Reason: Cervical Ripening Last Admin: 01/08/19 01:40 Dose: 25 mcg Misoprostol (Cytotec) 25 mcg VAG Q4H PRN PRN Reason: Cervical Ripening Last Admin: 01/08/19 14:12 Dose: 25 mcg Nalbuphine HCl (Nubain) 10 mg IVPUSH Q1H PRN PRN Reason: Pain (severe 7-10) Nalbuphine HCl (Nubain) 5 mg IVPUSH ASDIRECTED PRN PRN Reason: Itching Ondansetron HCl (Zofran) 4 mg IVPUSH Q6H PRN PRN Reason: Nausea/Vomiting Last Admin: 01/08/19 22:09 Dose: 4 mg Ondansetron HCl (Zofran) 4 mg IVPUSH Q4H PRN PRN Reason: Nausea/Vomiting Ondansetron HCl (Zofran) 4 mg IVPUSH Q6H PRN PRN Reason: Nausea Oxycodone/Acetaminophen (Percocet 325-5 Mg) 1 tab PO Q4H PRN PRN Reason: Pain (moderate 4-6) Oxycodone/Acetaminophen (Percocet 325-5 Mg) 2 tab PO Q4H PRN PRN Reason: Pain (moderate 4-6) Last Admin: 01/11/19 06:32 Dose: 2 tab Oxycodone/Acetaminophen (Percocet 325-5 Mg) 2 tab PO Q6H PRN PRN Reason: Pain (moderate 4-6) Polysaccharide Iron Complex (Ferrex 150) 150 mg PO DAILY SANDI Last Admin: 01/10/19 16:18 Dose: 150 mg Sodium Chloride (Saline Flush) 10 ml FLUSH ASDIRECTED PRN PRN Reason: Keep Vein Open Last Admin: 01/08/19 01:30 Dose: 10 ml Sodium Chloride (Saline Flush) 2.5 ml FLUSH ASDIRECTED PRN PRN Reason: Keep Vein Open Last Admin: 01/10/19 20:36 Dose: 2.5 ml Sodium Chloride (Normal Saline) 10 ml IV ASDIRECTED PRN PRN Reason: IV Use Sterile Water (Sterile Water For Irrigation) 1,000 ml IRR ASDIRECTED PRN PRN Reason: delivery Terbutaline Sulfate (Brethine) 0.25 mg SUBCUT ASDIRECTED PRN PRN Reason: Tacysystole Discontinued Medications Bupivacaine HCl (Marcaine 0.5%) Confirm Administered Dose 30 ml .ROUTE .STK-MED ONE Stop: 01/09/19 09:29 Last Admin: 01/09/19 22:47 Dose: Not Given Cefazolin Sodium (Ancef) Confirm Administered Dose 2 gm .ROUTE .STK-MED ONE Stop: 01/09/19 09:35 Citric Acid/Sodium Citrate (Bicitra Solution) 30 ml PO ONETIME ONE Stop: 01/09/19 09:27 Last Admin: 01/09/19 09:45 Dose: 30 ml Diphenhydramine HCl (Benadryl) 25 mg IVPUSH Q4H PRN PRN Reason: Itching Stop: 01/10/19 11:19 Ephedrine Sulfate (Ephedrine Sulfate) Confirm Administered Dose 100 mg .ROUTE .STK-MED ONE Stop: 01/09/19 09:35 Fentanyl (Sublimaze) Confirm Administered Dose 100 mcg .ROUTE .STK-MED ONE Stop: 01/08/19 21:03 Last Admin: 01/09/19 22:46 Dose: Not Given Fentanyl (Sublimaze) Confirm Administered Dose 100 mcg .ROUTE .STK-MED ONE Stop: 01/09/19 07:08 Last Admin: 01/09/19 22:46 Dose: Not Given Ropivacaine (Naropin 0.2%) Confirm Administered Dose 100 mls @ as directed .ROUTE .STK-MED ONE Stop: 01/08/19 21:03 Last Admin: 01/09/19 22:46 Dose: Not Given Ropivacaine (Naropin 0.2%) Confirm Administered Dose 100 mls @ as directed .ROUTE .STK-MED ONE Stop: 01/09/19 07:08 Last Admin: 01/09/19 22:46 Dose: Not Given Cefazolin Sodium/Dextrose 2 gm (/ Premix) 50 mls @ 100 mls/hr IV ONETIME ONE Stop: 01/09/19 09:54 Last Admin: 01/09/19 22:47 Dose: Not Given Sodium Chloride (Normal Saline) Confirm Administered Dose 40 mls @ as directed .ROUTE .STK-MED ONE Stop: 01/09/19 09:35 Acetaminophen (Ofirmev) Confirm Administered Dose 100 mls @ as directed IV .STK- MED ONE Stop: 01/09/19 09:50 Last Admin: 01/09/19 22:47 Dose: Not Given Ketorolac Tromethamine (Toradol) 30 mg IVPUSH Q6H [facility] Stop: 01/10/19 11:16 Last Admin: 01/10/19 12:02 Dose: 30 mg Morphine Sulfate (Duramorph Pf) Confirm Administered Dose 10 mg .ROUTE .STK-MED ONE Stop: 01/09/19 09:58 Naloxone HCl (Narcan) 0.1 mg IVPUSH ONETIME PRN PRN Reason: Respiratory Depression Stop: 01/10/19 11:19 Ondansetron HCl (Zofran) Confirm Administered Dose 4 mg .ROUTE .STK-MED ONE Stop: 10/31/19 09:35 Phenylephrine HCl (Phenylephrine In Ns 100 Mcg/Ml) Confirm Administered Dose 1 mg .ROUTE .STK-MED ONE Stop: 01/09/19 09:35 Propofol (Diprivan 20 Ml) Confirm Administered Dose 200 mg .ROUTE .STK-MED ONE Stop: 01/09/19 09:34 Succinylcholine Chloride (Succinylcholine Chloride) Confirm Administered Dose 200 mg .ROUTE .STK-MED ONE Stop: 01/09/19 09:35 - Infant Interaction Infant Disposition, : [place] to Nursery Interaction: To Nursery to Visit Infant Infant Feeding: Encouraged to Breastfeed, Other (see below) (pt is trying to breastfeed, but is experiencing abdominal cramping therefore is supplementing with bottle) Support Person: Significant Other - Recovery Exam Fundal Tone: Firm Fundal Level: 1 Fingerbreadths Below Umbilicus Fundal Placement: Midline Lochia Amount: Scant Lochia Color: Rubra/Red Perineum Description: Intact, Minimal Bruising/Swelling Episiotomy/Laceration: None Bladder Status: Voiding Urinary Elimination: Voided - Exam General: Alert, Oriented Lungs: Clear to Auscultation, Normal Respiratory Effort Cardiovascular: Regular Rate, Regular Rhythm GI/Abdominal Exam: Normal Bowel Sounds, Soft, Tender (to palpation of the uterus ) Extremities: Normal Inspection, Normal Range of Motion, Non-Tender Skin: Warm, Dry, Intact Wound/Incisions: Healing Well Neurological: No New Focal Deficit Psy/Mental Status: Alert, Normal Affect, Normal Mood - Problem List & Annotations (1) delivery, delivered, current hospitalization SNOMED Code(s): 784568707 Code(s): O82 - ENCOUNTER FOR DELIVERY WITHOUT INDICATION Status: Resolved Current Visit: Yes - Problem List Review Problem List Initiated/Reviewed/Updated: Yes - Assessment Assessment:: P2 s/p primary for arrest of descent. Good pain control , appropriate lochia , shields out and she has voided well. Anemia - Plan Plan:: care--continue to follow vitals and lochia Pain control as needed Voiding well Encouraged adequate hydration and nutrition Pt received blood transfusion over the course of the evening of 01/10 to 01/11-- she is hemodynamically stable--hgb up from 7.8 to 9.6 and asymptomatic Discharge today. Pelvic rest for 6 wks Return to care if fever over 101F, abnormally painful abdomen, abdomen becomes rigid, or there is a large amount of vaginal bleeding. F/U in [address] Plata <Yasmine Warren - Last Filed: 01/11/19 08:43> - Patient Data Vital Signs - Most Recent: Last Vital Signs Temp 36.8 C 01/11/19 04:14 Pulse 81 01/11/19 07:50 Resp 16 01/11/19 07:50 BP 115/59 L 01/11/19 07:50 Pulse Ox 95 01/11/19 07:50 I&O - Last 24 Hours: Intake & Output 01/10/19 01/11/19 01/11/19 22:59 06:59 14:59 Intake Total 0 686 Balance 0 686 Lab Results - Last 24 Hours: Laboratory Results - last 24 hr 01/08/19 01/08/19 01/11/19 Range/Units 01:31 01:31 06:25 WBC 16.46 H (4.0-11.0) K/uL RBC 3.41 L (4.30-5.90) M/uL Hgb 9.6 L (12.0-16.0) g/dL Hct 29.3 L (36.0-46.0) % MCV 85.9 (80.0-98.0) fL MCH 28.2 (27.0-32.0) pg MCHC 32.8 (31.0-37.0) g/dL RDW Std Deviation 50.6 (28.0-62.0) fl RDW Coeff of Adonis 16 H (11.0-15.0) % Plt Count 174 (150-400) K/uL MPV 11.80 (7.40-12.00) fL Neut % (Auto) 79.9 (48.0-80.0) % Lymph % (Auto) 12.6 L (16.0-40.0) % Adams % (Auto) 7.2 (0.0-15.0) % Eos % (Auto) 0.2 (0.0-7.0) % Baso % (Auto) 0.1 (0.0-1.5) % Neut # (Auto) 13.1 H (1.4-5.7) K/uL Lymph # (Auto) 2.1 (0.6-2.4) K/uL Adams # (Auto) 1.2 H (0.0-0.8) K/uL Eos # (Auto) 0.0 (0.0-0.7) K/uL Baso # (Auto) 0.0 (0.0-0.1) K/uL Nucleated RBC % 0.0 /100WBC Nucleated RBCs # 0 K/uL RPR Non Reactive (NonRea<1:1) Blood Type A POSITIVE Antibody Screen NEGATIVE Crossmatch See Detail Med Orders - Current: Current Medications Bisacodyl (Dulcolax) 10 mg RECTAL ONETIME PRN PRN Reason: Constipation Butorphanol Tartrate (Stadol) 1 mg IVPUSH Q1H PRN PRN Reason: Pain Last Admin: 01/08/19 20:27 Dose: 1 mg Carboprost Tromethamine (Hemabate Ds) 250 mcg IM ASDIRECTED PRN PRN Reason: Post Hemorrhage Diphenhydramine HCl (Benadryl) 25 mg IVPUSH Q6H PRN PRN Reason: Itching or Nausea Docusate Sodium (Colace) 100 mg PO BID SANDI Last Admin: 01/10/19 20:33 Dose: 100 mg Emollient Ointment (Lansinoh Hpa) 0 gm TOP ASDIRECTED PRN PRN Reason: Sore Nipples Fentanyl (Sublimaze) 50 mcg IVPUSH Q1H PRN PRN Reason: Pain (severe 7-10) Lactated Ringer's (Ringers, Lactated) 1,000 mls @ 150 mls/hr IV ASDIRECTED SANDI Last Admin: 01/09/19 09:25 Dose: 999 mls/hr Oxytocin/Sodium Chloride (Oxytocin 30 Unit/500 Ml-Ns) 30 unit in 500 mls @ 999 mls/hr IV TITRATE SANDI Oxytocin/Sodium Chloride (Oxytocin 30 Unit/500 Ml-Ns) 30 unit in 500 mls @ 2 mls/hr IV TITRATE SANDI; Protocol Last Titration: 01/09/19 09:13 Dose: 20 munits/min, 20 mls/hr Tranexamic Acid 1,000 mg/ (Sodium Chloride) 110 mls @ 660 mls/hr IV ONETIME PRN PRN Reason: Bleeding Lactated Ringer's (Ringers, Lactated) 1,000 mls @ 125 mls/hr IV ASDIRECTED SANDI Last Admin: 01/09/19 12:50 Dose: 125 mls/hr Ibuprofen (Motrin) 800 mg PO Q8H PRN PRN Reason: mild pain or fever Last Admin: 01/11/19 04:37 Dose: 800 mg Lidocaine HCl (Xylocaine 1%) 50 ml INJECT ONETIME PRN PRN Reason: Laceration repair Methylergonovine Maleate (Methergine) 0.2 mg IM ASDIRECTED PRN PRN Reason: Post Hemorrhage Misoprostol (Cytotec) 200 mcg PO ONETIME PRN PRN Reason: Post Hemorrhage Misoprostol (Cytotec) 25 mcg VAG ONETIME PRN PRN Reason: Cervical Ripening Last Admin: 01/08/19 01:40 Dose: 25 mcg Misoprostol (Cytotec) 25 mcg VAG Q4H PRN PRN Reason: Cervical Ripening Last Admin: 01/08/19 14:12 Dose: 25 mcg Nalbuphine HCl (Nubain) 10 mg IVPUSH Q1H PRN PRN Reason: Pain (severe 7-10) Nalbuphine HCl (Nubain) 5 mg IVPUSH ASDIRECTED PRN PRN Reason: Itching Ondansetron HCl (Zofran) 4 mg IVPUSH Q6H PRN PRN Reason: Nausea/Vomiting Last Admin: 01/08/19 22:09 Dose: 4 mg Ondansetron HCl (Zofran) 4 mg IVPUSH Q4H PRN PRN Reason: Nausea/Vomiting Ondansetron HCl (Zofran) 4 mg IVPUSH Q6H PRN PRN Reason: Nausea Oxycodone/Acetaminophen (Percocet 325-5 Mg) 1 tab PO Q4H PRN PRN Reason: Pain (moderate 4-6) Oxycodone/Acetaminophen (Percocet 325-5 Mg) 2 tab PO Q4H PRN PRN Reason: Pain (moderate 4-6) Last Admin: 01/11/19 06:32 Dose: 2 tab Oxycodone/Acetaminophen (Percocet 325-5 Mg) 2 tab PO Q6H PRN PRN Reason: Pain (moderate 4-6) Polysaccharide Iron Complex (Ferrex 150) 150 mg PO DAILY [facility] Last Admin: 01/10/19 16:18 Dose: 150 mg Sodium Chloride (Saline Flush) 10 ml FLUSH ASDIRECTED PRN PRN Reason: Keep Vein Open Last Admin: 01/08/19 01:30 Dose: 10 ml Sodium Chloride (Saline Flush) 2.5 ml FLUSH ASDIRECTED PRN PRN Reason: Keep Vein Open Last Admin: 01/10/19 20:36 Dose: 2.5 ml Sodium Chloride (Normal Saline) 10 ml IV ASDIRECTED PRN PRN Reason: IV Use Sterile Water (Sterile Water For Irrigation) 1,000 ml IRR ASDIRECTED PRN PRN Reason: delivery Terbutaline Sulfate (Brethine) 0.25 mg SUBCUT ASDIRECTED PRN PRN Reason: Tacysystole Discontinued Medications Bupivacaine HCl (Marcaine 0.5%) Confirm Administered Dose 30 ml .ROUTE .STK-MED ONE Stop: 01/09/19 09:29 Last Admin: 01/09/19 22:47 Dose: Not Given Cefazolin Sodium (Ancef) Confirm Administered Dose 2 gm .ROUTE .STK-MED ONE Stop: 01/09/19 09:35 Citric Acid/Sodium Citrate (Bicitra Solution) 30 ml PO ONETIME ONE Stop: 01/09/19 09:27 Last Admin: 01/09/19 09:45 Dose: 30 ml Diphenhydramine HCl (Benadryl) 25 mg IVPUSH Q4H PRN PRN Reason: Itching Stop: 01/10/19 11:19 Ephedrine Sulfate (Ephedrine Sulfate) Confirm Administered Dose 100 mg .ROUTE .STK-MED ONE Stop: 01/09/19 09:35 Fentanyl (Sublimaze) Confirm Administered Dose 100 mcg .ROUTE .STK-MED ONE Stop: 01/08/19 21:03 Last Admin: 01/09/19 22:46 Dose: Not Given Fentanyl (Sublimaze) Confirm Administered Dose 100 mcg .ROUTE .STK-MED ONE Stop: 01/09/19 07:08 Last Admin: 01/09/19 22:46 Dose: Not Given Ropivacaine (Naropin 0.2%) Confirm Administered Dose 100 mls @ as directed .ROUTE .STK-MED ONE Stop: 01/08/19 21:03 Last Admin: 01/09/19 22:46 Dose: Not Given Ropivacaine (Naropin 0.2%) Confirm Administered Dose 100 mls @ as directed .ROUTE .STK-MED ONE Stop: 01/09/19 07:08 Last Admin: 01/09/19 22:46 Dose: Not Given Cefazolin Sodium/Dextrose 2 gm (/ Premix) 50 mls @ 100 mls/hr IV ONETIME ONE Stop: 01/09/19 09:54 Last Admin: 01/09/19 22:47 Dose: Not Given Sodium Chloride (Normal Saline) Confirm Administered Dose 40 mls @ as directed .ROUTE .STK-MED ONE Stop: 01/09/19 09:35 Acetaminophen (Ofirmev) Confirm Administered Dose 100 mls @ as directed IV .STK- MED ONE Stop: 01/09/19 09:50 Last Admin: 01/09/19 22:47 Dose: Not Given Ketorolac Tromethamine (Toradol) 30 mg IVPUSH Q6H SANDI Stop: 01/10/19 11:16 Last Admin: 01/10/19 12:02 Dose: 30 mg Morphine Sulfate (Duramorph Pf) Confirm Administered Dose 10 mg .ROUTE .STK-MED ONE Stop: 01/09/19 09:58 Naloxone HCl (Narcan) 0.1 mg IVPUSH ONETIME PRN PRN Reason: Respiratory Depression Stop: 01/10/19 11:19 Ondansetron HCl (Zofran) Confirm Administered Dose 4 mg .ROUTE .STK-MED ONE Stop: 01/09/19 09:35 Phenylephrine HCl (Phenylephrine In Ns 100 Mcg/Ml) Confirm Administered Dose 1 mg .ROUTE .STK-MED ONE Stop: 01/09/19 09:35 Propofol (Diprivan 20 Ml) Confirm Administered Dose 200 mg .ROUTE .STK-MED ONE Stop: 01/09/19 09:34 Succinylcholine Chloride (Succinylcholine Chloride) Confirm Administered Dose 200 mg .ROUTE .STK-MED ONE Stop: 01/09/19 09:35 - Plan Plan:: I have seen and examined the patient, and agree with the above.
[2019-01-11] MEDS: Docusate Sodium 100 MG Cap PO SCH ×2 (08:53→20:34)
[2019-01-11] MEDS: Iron Polysaccharides Complex 150 MG Cap PO SCH (08:54)
[2019-01-12] MEDS: Acetaminophen/oxyCODONE 325-5 MG Tab PO PRN (03:59)
--- NOTE | 2019-01-12 08:40 | PCM.PNPP ---
- General Info Date of Service: 01/12/19 Admission Dx/Problem (Free Text): Patient sore, but pain is controlled with medication. Functional Status: Reports: Pain Controlled, Tolerating Diet, Ambulating, Urinating - Review of Systems General: Reports: No Symptoms HEENT: Reports: No Symptoms Pulmonary: Reports: No Symptoms Cardiovascular: Reports: No Symptoms Gastrointestinal: Reports: No Symptoms Genitourinary: Reports: No Symptoms Musculoskeletal: Reports: No Symptoms Skin: Reports: No Symptoms Neurological: Reports: No Symptoms Psychiatric: Reports: No Symptoms - Patient Data Vital Signs - Most Recent: Last Vital Signs Temp 36.9 C 01/12/19 04:00 Pulse 80 01/12/19 04:00 Resp 17 01/12/19 04:00 BP 116/62 01/12/19 04:00 Pulse Ox 98 01/12/19 04:00 Weight - Most Recent: 97.523 kg Med Orders - Current: Current Medications Bisacodyl (Dulcolax) 10 mg RECTAL ONETIME PRN PRN Reason: Constipation Butorphanol Tartrate (Stadol) 1 mg IVPUSH Q1H PRN PRN Reason: Pain Last Admin: 01/08/19 20:27 Dose: 1 mg Carboprost Tromethamine (Hemabate Ds) 250 mcg IM ASDIRECTED PRN PRN Reason: Post Hemorrhage Diphenhydramine HCl (Benadryl) 25 mg IVPUSH Q6H PRN PRN Reason: Itching or Nausea Docusate Sodium (Colace) 100 mg PO BID SANDI Last Admin: 01/11/19 20:34 Dose: 100 mg Emollient Ointment (Lansinoh Hpa) 0 gm TOP ASDIRECTED PRN PRN Reason: Sore Nipples Fentanyl (Sublimaze) 50 mcg IVPUSH Q1H PRN PRN Reason: Pain (severe 7-10) Lactated Ringer's (Ringers, Lactated) 1,000 mls @ 150 mls/hr IV ASDIRECTED SANDI Last Admin: 01/09/19 09:25 Dose: 999 mls/hr Oxytocin/Sodium Chloride (Oxytocin 30 Unit/500 Ml-Ns) 30 unit in 500 mls @ 999 mls/hr IV TITRATE SANDI Oxytocin/Sodium Chloride (Oxytocin 30 Unit/500 Ml-Ns) 30 unit in 500 mls @ 2 mls/hr IV TITRATE SANDI; Protocol Last Titration: 01/09/19 09:13 Dose: 20 munits/min, 20 mls/hr Tranexamic Acid 1,000 mg/ (Sodium Chloride) 110 mls @ 660 mls/hr IV ONETIME PRN PRN Reason: Bleeding Lactated Ringer's (Ringers, Lactated) 1,000 mls @ 125 mls/hr IV ASDIRECTED SANDI Last Admin: 01/09/19 12:50 Dose: 125 mls/hr Ibuprofen (Motrin) 800 mg PO Q8H PRN PRN Reason: mild pain or fever Last Admin: 01/11/19 20:34 Dose: 800 mg Lidocaine HCl (Xylocaine 1%) 50 ml INJECT ONETIME PRN PRN Reason: Laceration repair Methylergonovine Maleate (Methergine) 0.2 mg IM ASDIRECTED PRN PRN Reason: Post Hemorrhage Misoprostol (Cytotec) 200 mcg PO ONETIME PRN PRN Reason: Post Hemorrhage Misoprostol (Cytotec) 25 mcg VAG ONETIME PRN PRN Reason: Cervical Ripening Last Admin: 01/08/19 01:40 Dose: 25 mcg Misoprostol (Cytotec) 25 mcg VAG Q4H PRN PRN Reason: Cervical Ripening Last Admin: 01/08/19 14:12 Dose: 25 mcg Nalbuphine HCl (Nubain) 10 mg IVPUSH Q1H PRN PRN Reason: Pain (severe 7-10) Nalbuphine HCl (Nubain) 5 mg IVPUSH ASDIRECTED PRN PRN Reason: Itching Ondansetron HCl (Zofran) 4 mg IVPUSH Q6H PRN PRN Reason: Nausea/Vomiting Last Admin: 01/08/19 22:09 Dose: 4 mg Ondansetron HCl (Zofran) 4 mg IVPUSH Q4H PRN PRN Reason: Nausea/Vomiting Ondansetron HCl (Zofran) 4 mg IVPUSH Q6H PRN PRN Reason: Nausea Oxycodone/Acetaminophen (Percocet 325-5 Mg) 1 tab PO Q4H PRN PRN Reason: Pain (moderate 4-6) Oxycodone/Acetaminophen (Percocet 325-5 Mg) 2 tab PO Q4H PRN PRN Reason: Pain (moderate 4-6) Last Admin: 01/12/19 03:59 Dose: 2 tab Oxycodone/Acetaminophen (Percocet 325-5 Mg) 2 tab PO Q6H PRN PRN Reason: Pain (moderate 4-6) Polysaccharide Iron Complex (Ferrex 150) 150 mg PO DAILY SANDI Last Admin: 01/11/19 08:54 Dose: 150 mg Sodium Chloride (Saline Flush) 10 ml FLUSH ASDIRECTED PRN PRN Reason: Keep Vein Open Last Admin: 01/08/19 01:30 Dose: 10 ml Sodium Chloride (Saline Flush) 2.5 ml FLUSH ASDIRECTED PRN PRN Reason: Keep Vein Open Last Admin: 01/10/19 20:36 Dose: 2.5 ml Sodium Chloride (Normal Saline) 10 ml IV ASDIRECTED PRN PRN Reason: IV Use Sterile Water (Sterile Water For Irrigation) 1,000 ml IRR ASDIRECTED PRN PRN Reason: delivery Terbutaline Sulfate (Brethine) 0.25 mg SUBCUT ASDIRECTED PRN PRN Reason: Tacysystole Discontinued Medications Bupivacaine HCl (Marcaine 0.5%) Confirm Administered Dose 30 ml .ROUTE .STK-MED ONE Stop: 01/09/19 09:29 Last Admin: 01/09/19 22:47 Dose: Not Given Cefazolin Sodium (Ancef) Confirm Administered Dose 2 gm .ROUTE .STK-MED ONE Stop: 01/09/19 09:35 Citric Acid/Sodium Citrate (Bicitra Solution) 30 ml PO ONETIME ONE Stop: 01/09/19 09:27 Last Admin: 01/09/19 09:45 Dose: 30 ml Diphenhydramine HCl (Benadryl) 25 mg IVPUSH Q4H PRN PRN Reason: Itching Stop: 01/10/19 11:19 Ephedrine Sulfate (Ephedrine Sulfate) Confirm Administered Dose 100 mg .ROUTE .STK-MED ONE Stop: 01/09/19 09:35 Fentanyl (Sublimaze) Confirm Administered Dose 100 mcg .ROUTE .STK-MED ONE Stop: 01/08/19 21:03 Last Admin: 01/09/19 22:46 Dose: Not Given Fentanyl (Sublimaze) Confirm Administered Dose 100 mcg .ROUTE .STK-MED ONE Stop: 01/09/19 07:08 Last Admin: 01/09/19 22:46 Dose: Not Given Ropivacaine (Naropin 0.2%) Confirm Administered Dose 100 mls @ as directed .ROUTE .STK-MED ONE Stop: 01/08/19 21:03 Last Admin: 01/09/19 22:46 Dose: Not Given Ropivacaine (Naropin 0.2%) Confirm Administered Dose 100 mls @ as directed .ROUTE .STK-MED ONE Stop: 01/09/19 07:08 Last Admin: 01/09/19 22:46 Dose: Not Given Cefazolin Sodium/Dextrose 2 gm (/ Premix) 50 mls @ 100 mls/hr IV ONETIME ONE Stop: 01/09/19 09:54 Last Admin: 01/09/19 22:47 Dose: Not Given Sodium Chloride (Normal Saline) Confirm Administered Dose 40 mls @ as directed .ROUTE .STK-MED ONE Stop: 01/09/19 09:35 Acetaminophen (Ofirmev) Confirm Administered Dose 100 mls @ as directed IV .STK- MED ONE Stop: 01/09/19 09:50 Last Admin: 01/09/19 22:47 Dose: Not Given Ketorolac Tromethamine (Toradol) 30 mg IVPUSH Q6H SANDI Stop: 01/10/19 11:16 Last Admin: 01/10/19 12:02 Dose: 30 mg Morphine Sulfate (Duramorph Pf) Confirm Administered Dose 10 mg .ROUTE .STK-MED ONE Stop: 01/09/19 09:58 Naloxone HCl (Narcan) 0.1 mg IVPUSH ONETIME PRN PRN Reason: Respiratory Depression Stop: 01/10/19 11:19 Ondansetron HCl (Zofran) Confirm Administered Dose 4 mg .ROUTE .STK-MED ONE Stop: 01/09/19 09:35 Phenylephrine HCl (Phenylephrine In Ns 100 Mcg/Ml) Confirm Administered Dose 1 mg .ROUTE .STK-MED ONE Stop: 01/09/19 09:35 Propofol (Diprivan 20 Ml) Confirm Administered Dose 200 mg .ROUTE .STK-MED ONE Stop: 01/09/19 09:34 Succinylcholine Chloride (Succinylcholine Chloride) Confirm Administered Dose 200 mg .ROUTE .STK-MED ONE Stop: 01/09/19 09:35 - Infant Interaction Disposition, : [place] in Room with Family Infant Interaction: Holding Feeding: Attempted ; Nursed Fair/Poor Support Person: Significant Other - Recovery Exam Fundal Tone: Firm Fundal Level: 1 Fingerbreadths Below Umbilicus Fundal Placement: Midline Lochia Amount: Scant Lochia Color: Rubra/Red Bladder Status: Voiding Urinary Elimination: Voided Other Urinary Elimination, : Catheter removed. Has not yet voided. - Exam General: Alert, Oriented Neck: Supple Lungs: Clear to Auscultation, Normal Respiratory Effort Cardiovascular: Regular Rate, Regular Rhythm GI/Abdominal Exam: Soft, No Distention Extremities: Normal Inspection, No Pedal Edema Skin: Warm, Dry, Intact Wound/Incisions: Healing Well Neurological: No New Focal Deficit Psy/Mental Status: Alert, Normal Affect, Normal Mood - Problem List & Annotations (1) delivery, delivered, current hospitalization SNOMED Code(s): 025040788 Code(s): O82 - ENCOUNTER FOR DELIVERY WITHOUT INDICATION Status: Resolved Current Visit: Yes - Problem List Review Problem List Initiated/Reviewed/Updated: Yes - My Orders Last 24 Hours: My Active Orders 01/12/19 08:38 Ready for Discharge [RC] PER UNIT ROUTINE - Assessment Assessment:: P2 s/p primary for arrest of descent, POD#3. Good pain control , appropriate lochia , shields out and she has voided well. Anemia - Plan Plan:: 1. Anemia: Hemoglobin improved and patient asymptomatic after transfusion of 2 units packed RBCs. 2. Discharge: Patient desires discharge home today. Reviewed discharge instructions. Follow-up in 2 weeks for incision check.
[2019-01-12] MEDS: Iron Polysaccharides Complex 150 MG Cap PO SCH (09:24)
[2019-01-12] MEDS: Docusate Sodium 100 MG Cap PO SCH (09:25)
[2019-01-12] MEDS: Ibuprofen 800 MG Tab PO PRN (09:25)
--- NOTE | 2019-01-14 07:47 | OR ---
SURGEON: MICHAEL PICKENS DATE OF PROCEDURE: 01/09/2019 PREOPERATIVE DIAGNOSIS: A 23-year-old G1, P0, at 40 weeks, 6 days with arrest of descent. POSTOPERATIVE DIAGNOSIS: A 23-year-old G1, P0, at 40 weeks, 6 days with arrest of descent. PROCEDURE: Primary lower transverse section. ESTIMATED BLOOD LOSS: 1000. IV FLUIDS: 1900. URINE OUTPUT: 450. NOTES AND FINDINGS: A live female delivered at 1015 hours. score is 8 and 8. Weight is 3430 g. BRIEF HISTORY: She is a 23-year-old, G1, P0, at 40 weeks and 6 days, who wanted to have an induction of labor. She was induced for postdates. Induction of labor was started with Cytotec. After Cytotec, she received Pitocin. She made change, and she became fully dilated. The patient being fully dilated, she pushed for about 2-1/2 hours, and the head had not passed the pelvic brim. As a result, the patient opted for a . The position was also noted to be occiput posterior position. The patient was informed of the risks, benefits, and alternatives, and she decided to proceed. DESCRIPTION OF PROCEDURE: The patient was taken to the operating room in stable condition. Epidural anesthesia was topped up. She was prepared in the dorsal supine position with a leftward tilt. A Pfannenstiel skin incision was made with a scalpel and carried down to the fascia with the Bovie. The fascia was incised and extended laterally with the mcmullen scissor. The fascia was from the rectus muscle superiorly and inferiorly. The rectus muscle was in the midline. Peritoneum was observed and it was entered in bluntly. It was now exposed to expose the lower uterine segment. The Boyd O retractor was placed in to expose the lower uterine segment. The Metzenbaum scissors were used to create a bladder flap. A lower uterine incision was noted. Some thin meconium was noted. The baby was noted to be in the OP position, was elevated all the way to the incision and was delivered with some pressure on the abdomen. The cord was clamped and cut. was handed over to the awaiting wool classer. The placenta was delivered with manual massage of the uterine fundus. The uterine incision was cleaned with a moist laparotomy sponge. The incision was closed in 2 layers, first layer with 0 Vicryl, second layer with 0 Monocryl, then the retractor was removed. The lower uterine segment was then inspected, noted to be hemostatic. The peritoneum was closed with 2-0 Vicryl. The rectus muscles were apposed in the midline with the raphe and also the fascia was closed with 0 Vicryl. The subcutaneous Sky's fascia was closed with 3-0 Vicryl and the skin incision was closed with 3-0 Monocryl on a David needle. All instrument and pad counts were correct x2. STEVE / ANTOINETTE /[id number] NIMISHA
== END 2019-01-12 14:40 | disposition home or self-care (01) | DRG 787 ==
LOC: MW.OBCHECK 00:52 → MW.OB 00:55 → OBSVTOIN 01-09 10:15 → MW.OB 01-09 14:10
PROVIDERS: ADMIT Obstetrics & Gynecology; ATTEND Obstetrics & Gynecology
PROC: 10D00Z1 Extraction of Products of Conception, Low, Open Approach (ICD-10-PCS; principal; 2019-01-09)
PROC: 3E0P7VZ Introduction of Hormone into Female Reproductive, Via Natural or Artificial Opening (ICD-10-PCS; 2019-01-09)
PROC: 3E033VJ Introduction of Other Hormone into Peripheral Vein, Percutaneous Approach (ICD-10-PCS; 2019-01-09)
PROC: 10907ZC Drainage of Amniotic Fluid, Therapeutic from Products of Conception, Via Natural or Artificial Opening (ICD-10-PCS; 2019-01-09)
PROC: 3E0R3BZ Introduction of Anesthetic Agent into Spinal Canal, Percutaneous Approach (ICD-10-PCS; 2019-01-09)
PROC: 00HU33Z Insertion of Infusion Device into Spinal Canal, Percutaneous Approach (ICD-10-PCS; 2019-01-09)
PROC: 30233N1 Transfusion of Nonautologous Red Blood Cells into Peripheral Vein, Percutaneous Approach (ICD-10-PCS; 2019-01-12)
DX: O48.0 Post-term pregnancy (principal); D62 Acute posthemorrhagic anemia; O66.9 Obstructed labor, unspecified; Z3A.40 40 weeks gestation of pregnancy; Z37.0 Single live birth; O90.81 Anemia of the puerperium; O76 Abnormality in fetal heart rate and rhythm complicating labor and delivery; O77.0 Labor and delivery complicated by meconium in amniotic fluid
CPT/HCPCS: 01967; 01968; 36415; 36430; 51702; 59025; 85014; 85018; 85025; 85027; 86593; 86850; 86900; 86901; 86920; 86921; 86922; 88307; A9270-GY; J0330; J0595; J0690; J1885; J2270; J2370; J2405; J2590; J2704; J7120; P9016